=== PATIENT | male | born 1950 | race Caucasian/White ===

== ENCOUNTER 2018-03-30 07:29 | Day surgery (SDC) | payer MEDICARE ==
[2018-03-30 08:12] VITALS: BMI 26.4
--- NOTE | 2018-03-30 10:03 | CP.SDSHP ---
Same Day Surgery H & P - History Proposed Procedure: screening colonoscopy Pre-Op Diagnosis: screening for colon cancer - Previous Medical/Surgical History Cardiac: Hypertension Misc: Other (internal hemorrhoids) Previous Surgical History: denies - Allergies Allergies: Allergies No Known Allergies Allergy (Verified 03/30/18 08:10) - Physical Exam Vital Signs: Vital Signs 03/30/18 03/30/18 08:12 08:26 Temperature 99.6 F Pulse Rate 113 H 113 H Respiratory 20 Rate Blood Pressure 158/103 H O2 Sat by Pulse 98 Oximetry Mental Status: Alert & Oriented x3 Neuro: WNL Heart: WNL Lungs: WNL GI: WNL - {Optional Preform as Required} Other Pertinent Findings: last colonoscopy 03/2008 negative for polyps - Impression Impression: screening for colon cancer Pt. Evaluated Today:Candidate for Anesthesia & Procedure: Yes - Date & Time Date: 03/30/18 Time: 10:02 Short Stay Discharge - Short Stay Discharge Admitting Diagnosis/Reason for Visit: ENCOUNTER FOR SCREENING Disposition: HOME/ ROUTINE
[2018-03-30] MEDS ORDERED: Lactated Ringer's 1,000 ML IV ONE (10:05)
[2018-03-30] MEDS ORDERED: Midazolam 2 MG/2 ML VIAL ONE (10:12)
[2018-03-30] MEDS ORDERED: Propofol 10 mg/ml Inj (20 ML) ONE (10:13)
[2018-03-30] MEDS ORDERED: Lidocaine Hydrochloride 5 ML INJ ONE (10:34)
[2018-03-30] MEDS ORDERED: Esmolol 100 mg/10ml Inj IV ONE (10:34)
[2018-03-30 11:20] VITALS: TEMP 97.6
[2018-03-30 11:41] VITALS: O2SAT 100
[2018-03-30 12:04] VITALS: BP 111/80; PULSE 99; RESP 11
== END 2018-03-30 11:55 | disposition home or self-care (01) ==
LOC: C.ENDO 07:29
PROVIDERS: ATTEND Internal Medicine Gastroenterology
DX: Z12.11 Encounter for screening for malignant neoplasm of colon (principal); D12.4 Benign neoplasm of descending colon; D12.3 Benign neoplasm of transverse colon; K64.1 Second degree hemorrhoids; I10 Essential (primary) hypertension
CPT/HCPCS: 45385; 88305; J2250; J2704; J7120